=== PATIENT | male | born 1970 | race Caucasian/White ===

== ENCOUNTER 2018-07-23 11:30 | Emergency (ER) | payer MEDICAID, SELFPAY ==
[2018-07-23 11:31] VITALS: BP 119/82; PULSE 71; RESP 17; TEMP 36.4; O2SAT 97; BMI 31.4
--- NOTE | 2018-07-23 12:02 | CT_ITS ---
STUDY: CT ABDOMEN AND PELVIS WITHOUT CONTRAST REASON FOR EXAM: Male, 47 years old. Right flank pain. RADIATION DOSAGE (If Supplied By Facility): CTDIvol = ( 14.20 ) mGy, DLP = ( 702.64 ) mGycm TECHNIQUE: Transaxial images were obtained from the dome of the diaphragm to the symphysis pubis without oral contrast, and without intravenous contrast. Sagittal and coronal images were reconstructed. Individualized dose optimization techniques were used for this CT. COMPARISON: None. FINDINGS: The visualized lung bases are unremarkable. The visualized portions of the heart are within normal limits. Normal liver. Normal gallbladder and extrahepatic biliary system. Normal spleen. Normal pancreas. Normal bilateral adrenal glands. Normal right kidney. Normal left kidney. Normal visualized stomach. Normal small intestine. There are multiple colonic diverticula consistent with diverticulosis. The appendix is visualized and appears normal. There is scattered atherosclerotic calcification of the abdominal aorta, without a demonstrated aneurysm. Normal inferior vena cava. Normal retroperitoneum. Normal urinary bladder. There are prostatic calcifications. There is a small umbilical hernia containing fat. Small bilateral benign-appearing inguinal lymph nodes. There are mild degenerative changes of the visualized lumbar spine. CT/Abdomen/Pelvis without Cont IMPRESSION: Sigmoid diverticulosis. Electronically Signed: Sam Guidry MD at 14:28 EST , Service support ,
--- NOTE | 2018-07-23 12:06 | ED.VISSUMM ---
- ER Visit Summary Date of Service: 07/23/18 Chief Complaint: Right flank pain History of Present Illness: The patient is a 47 M who presents for 4 days of gradually worsening right-sided flank pain. Patient states he had a upper respiratory infection 1 week ago with cough and shortness of breath. No fever, nausea, vomiting, diarrhea or abdominal pain. Those symptoms have since resolved but now he is having right-sided flank pain that is worse with movement and coughing. Patient has pressure when he urinates but denies any hematuria or frequency. She tried ibuprofen and Tylenol without any relief of his pain. He has no history of kidney stones. He denies tobacco use. No medical problems, including no coronary artery disease or prior history of venous thromboembolism. Physical Examination: Vital signs: afebrile, hemodynamically stable, no hypoxia on room air General: well nourished, well developed, in no distress, sitting in a chair Skin: warm, dry, no rash, no pallor HEENT: normocephalic and atraumatic; PERRL, EOMI, moist mucous membranes Cardiovascular: regular rate and rhythm without murmurs, no peripheral edema, 2+ pulses all distal extremities Respiratory: No increased work of breathing, lungs are clear to auscultation bilaterally, no rales, rhonchi or wheezing Abdominal: Abdomen is soft, nontender with normoactive bowel sounds, no guarding or rebound, no masses, positive right-sided CVA tenderness, no tenderness to palpation of the right back musculature MSK: Moves all extremities, no deformities, normal strength Neuro: Awake and alert, oriented ?4. No facial droop, sensation and motor function intact and symmetric Test Results: Abnormal Lab Results 07/23/18 07/23/18 07/23/18 12:11 12:11 12:45 WBC 9.5 RBC 4.89 Hgb 14.7 Hct 44.8 MCV 91.6 MCH 30.1 MCHC 32.8 RDW 12.4 RDW Differential 41.5 Plt Count 225 MPV 10.6 Immature Gran % (Auto) 1.100 H Neut % (Auto) 56.0 Lymph % (Auto) 35.3 [place] % (Auto) 6.2 Eos % (Auto) 1.1 Baso % (Auto) 0.3 Absolute Neuts (auto) 5.3 Absolute Lymphs (auto) 3.34 Total Counted Not Reportable Sodium 141 Potassium 4.1 Chloride 110 H Carbon Dioxide 23.0 Anion Gap 8 BUN 17 Creatinine 1.09 Estim Creat Clear Calc 74.79 Est GFR (MDRD) Af Amer 93 Est GFR (MDRD) Non-Af 76 BUN/Creatinine Ratio 15.6 Glucose 83 Calcium 8.9 Urine Color Yellow Urine Clarity Clear Urine pH 6.5 Ur Specific [place] 1.015 Urine Protein Negative Urine Glucose (UA) Normal Urine Ketones Negative Urine Occult Blood 10 H Urine Nitrite Negative Urine Bilirubin Negative Urine Urobilinogen Normal Ur Leukocyte Esterase Negative Urine RBC 0 SEEN Urine WBC 0 SEEN Ur Squamous Epith Cells 0 SEEN Urine Bacteria 0 SEEN Urine Mucus 0 SEEN Clinical Impression(s) from Imaging Studies Abdomen/Pelvis CT 07/23/18 12:02 IMPRESSION: Sigmoid diverticulosis. Electronically Signed: Sam Guidry MD at 14:28 EST , Service support , Chest X-Ray 07/23/18 13:05 IMPRESSION: Normal x-ray examination of the chest. Electronically Signed: Sam Guirdy MD at 13:35 EST , Service support , Medications Given Sodium Chloride () 1,000 mls @ 999 mls/hr IV .Q1H1M LORETA Last Admin: 07/23/18 15:17 Dose: Not Given Admin: 07/23/18 14:08 Dose: Not Given Admin: 07/23/18 14:08 Dose: Not Given Admin: 07/23/18 12:49 Dose: 999 mls/hr Discontinued Medications Ketorolac Tromethamine (Toradol) 15 mg IV X1 ONE Stop: 07/23/18 12:03 Last Admin: 07/23/18 12:48 Dose: 15 mg Morphine Sulfate () 4 mg IV X1 ONE Stop: 07/23/18 14:16 Last Admin: 07/23/18 14:20 Dose: 4 mg Emergency Department Course and Treatment: Patient was given IV fluids and Toradol for symptomatic relief. Differential includes pneumonia, pleurisy, ureteral colic, pyelonephritis, or musculoskeletal strain. Patient does not have tenderness with palpation of the musculature, thus workup was performed to look for intra-abdominal or intrathoracic cause. Patient is not tachycardic, not hypoxic, has no risk factors for PE and is low risk, PERC negative, thus no d-dimer performed. CBC showed no leukocytosis. Chemistry panel showed no renal dysfunction. Urine was negative for pyuria, hematuria. CT of the flank showed diverticulosis but no sign of a kidney stone. Chest x-ray showed no pneumonia. Patient received additional morphine for pain. On reevaluation he was ambulating without difficulty, and on this reevaluation he did have some tenderness to palpation at the right thoracic region of the back just below the rib margin. Because his pain is worse with movement, this may either be muscle strain or pleurisy, as he did recently have a viral infection. Patient will use naproxen as needed for pain. He was given a prescription of Flexeril to try to see if that helps with a musculoskeletal component. Patient discharged home in improved condition. Treatment Plan: [] Disposition: [] Impression: Pleurisy, thoracic back spasm This note was generated with [employer] dictation software. It may contain incorrect words, spelling, and punctuation that were not noted in review of the chart prior to signing ED Disposition - Plan for ED Patient: Disposition: Home or Assisted Living Instructions: ED Flank Pain Uncertain Cause, ED Chest Pain Pleurisy Prescriptions: RX: Cyclobenzaprine HCl 5 mg PO TID PRN PRN #20 tab PRN Reason: Muscle Spasm RX: Naproxen [Naprosyn] 500 mg PO BID #20 tab Referrals: NOT,DEFINED [NON-STAFF] - Doctor,Your [STAFF PHYSICIAN] - Keep [facility] appointment Additional Instructions: Your workup today showed no findings concerning for pneumonia, a kidney stone, urine infection, and your labs were all normal. Use naproxen to treat pain as needed. You may try the cyclobenzaprine for treatment of back muscle spasm. If you have any new concerning symptoms or any severe worsening of your pain, return emergency department immediately for another evaluation.
--- NOTE | 2018-07-23 12:09 | ED.DCSUM_ITS ---
- ER Visit Summary Date of Service: 07/23/18 Chief Complaint: Right flank pain History of Present Illness: The patient is a 47 M who presents for 4 days of gradually worsening right-sided flank pain. Patient states he had a upper respiratory infection 1 week ago with cough and shortness of breath. No fever, nausea, vomiting, diarrhea or abdominal pain. Those symptoms have since resolved but now he is having right-sided flank pain that is worse with movement and coughing. Patient has pressure when he urinates but denies any hematuria or frequency. She tried ibuprofen and Tylenol without any relief of his pain. He has no history of kidney stones. He denies tobacco use. No medical problems, including no coronary artery disease or prior history of venous thromboembolism. Physical Examination: Vital signs: afebrile, hemodynamically stable, no hypoxia on room air General: well nourished, well developed, in no distress, sitting in a chair Skin: warm, dry, no rash, no pallor HEENT: normocephalic and atraumatic; PERRL, EOMI, moist mucous membranes Cardiovascular: regular rate and rhythm without murmurs, no peripheral edema, 2+ pulses all distal extremities Respiratory: No increased work of breathing, lungs are clear to auscultation bilaterally, no rales, rhonchi or wheezing Abdominal: Abdomen is soft, nontender with normoactive bowel sounds, no guarding or rebound, no masses, positive right-sided CVA tenderness, no tenderness to palpation of the right back musculature MSK: Moves all extremities, no deformities, normal strength Neuro: Awake and alert, oriented ?4. No facial droop, sensation and motor function intact and symmetric Test Results: Abnormal Lab Results 07/23/18 07/23/18 07/23/18 12:11 12:11 12:45 WBC 9.5 RBC 4.89 Hgb 14.7 Hct 44.8 MCV 91.6 MCH 30.1 MCHC 32.8 RDW 12.4 RDW Differential 41.5 Plt Count 225 MPV 10.6 Immature Gran % (Auto) 1.100 H Neut % (Auto) 56.0 Lymph % (Auto) 35.3 [place] % (Auto) 6.2 Eos % (Auto) 1.1 Baso % (Auto) 0.3 Absolute Neuts (auto) 5.3 Absolute Lymphs (auto) 3.34 Total Counted Not Reportable Sodium 141 Potassium 4.1 Chloride 110 H Carbon Dioxide 23.0 Anion Gap 8 BUN 17 Creatinine 1.09 Estim Creat Clear Calc 74.79 Est GFR (MDRD) Af Amer 93 Est GFR (MDRD) Non-Af 76 BUN/Creatinine Ratio 15.6 Glucose 83 Calcium 8.9 Urine Color Yellow Urine Clarity Clear Urine pH 6.5 Ur Specific [place] 1.015 Urine Protein Negative Urine Glucose (UA) Normal Urine Ketones Negative Urine Occult Blood 10 H Urine Nitrite Negative Urine Bilirubin Negative Urine Urobilinogen Normal Ur Leukocyte Esterase Negative Urine RBC 0 SEEN Urine WBC 0 SEEN Ur Squamous Epith Cells 0 SEEN Urine Bacteria 0 SEEN Urine Mucus 0 SEEN Clinical Impression(s) from Imaging Studies Abdomen/Pelvis CT 07/23/18 12:02 IMPRESSION: Sigmoid diverticulosis. Electronically Signed: Sam Guidry MD at 14:28 EST , Service support , Chest X-Ray 07/23/18 13:05 IMPRESSION: Normal x-ray examination of the chest. Electronically Signed: Sam Guidry MD at 13:35 EST , Service support , Medications Given Sodium Chloride () 1,000 mls @ 999 mls/hr IV .Q1H1M LORETA Last Admin: 07/23/18 15:17 Dose: Not Given Admin: 07/23/18 14:08 Dose: Not Given Admin: 07/23/18 14:08 Dose: Not Given Admin: 07/23/18 12:49 Dose: 999 mls/hr Discontinued Medications Ketorolac Tromethamine (Toradol) 15 mg IV X1 ONE Stop: 07/23/18 12:03 Last Admin: 07/23/18 12:48 Dose: 15 mg Morphine Sulfate () 4 mg IV X1 ONE Stop: 07/23/18 14:16 Last Admin: 07/23/18 14:20 Dose: 4 mg Emergency Department Course and Treatment: Patient was given IV fluids and Toradol for symptomatic relief. Differential includes pneumonia, pleurisy, ureteral colic, pyelonephritis, or musculoskeletal strain. Patient does not have tenderness with palpation of the musculature, thus workup was performed to look for intra-abdominal or intrathoracic cause. Patient is not tachycardic, not hypoxic, has no risk factors for PE and is low risk, PERC negative, thus no d-dimer performed. CBC showed no leukocytosis. Chemistry panel showed no renal dysfunction. Urine was negative for pyuria, hematuria. CT of the flank showed diverticulosis but no sign of a kidney stone. Chest x-ray showed no pneumonia. Patient received additional morphine for pain. On reevaluation he was ambulating without difficulty, and on this reevaluation he did have some tenderness to palpation at the right thoracic region of the back just below the rib margin. Because his pain is worse with movement, this may either be muscle strain or pleurisy, as he did recently have a viral infection. Patient will use naproxen as needed for pain. He was given a prescription of Flexeril to try to see if that helps with a musculoskeletal component. Patient discharged home in improved condition. Treatment Plan: [] Disposition: [] Impression: Pleurisy, thoracic back spasm This note was generated with [employer] dictation software. It may contain incorrect words, spelling, and punctuation that were not noted in review of the chart prior to signing ED Disposition - Plan for ED Patient: Disposition: Home or Assisted Living Instructions: ED Flank Pain Uncertain Cause, ED Chest Pain Pleurisy Prescriptions: RX: Cyclobenzaprine HCl 5 mg PO TID PRN PRN #20 tab PRN Reason: Muscle Spasm RX: Naproxen [Naprosyn] 500 mg PO BID #20 tab Referrals: NOT,DEFINED [NON-STAFF] - Doctor,Your [STAFF PHYSICIAN] - Keep [facility] appointment Additional Instructions: Your workup today showed no findings concerning for pneumonia, a kidney stone, urine infection, and your labs were all normal. Use naproxen to treat pain as needed. You may try the cyclobenzaprine for treatment of back muscle spasm. If you have any new concerning symptoms or any severe worsening of your pain, return emergency department immediately for another evaluation.
[2018-07-23 12:28] LABS: Absolute Lymphocyte Count 3.34 X10^3/ul (0.83-4.51); Absolute Neutrophil Count 5.3 X10^3/uL (2.0-7.7); Basophil# 0.03 X10^3/uL; Basophil% 0.3 % (0-1); Eosinophils% 1.1 % (0-5); Hematocrit 44.8 % (40-54); Hemoglobin 14.7 g/dl (13.0-16.5); Lymphocyte # 3.34 X10^3/ul (4.0); Lymphocyte % 35.3 % (19-41); Mean Corp Hgb Conc 32.8 g/gl (32-36); Mean Corpuscular Hgb 30.1 pg (27.0-32.0); Mean Corpuscular Volume 91.6 fL (80-94); Mean Platelet Vol. 10.6 fl (6.2-12.0); Monocyte# 0.59 X10^3/uL; Monocyte% 6.2 % (0-10); Neutrophil # 5.31 X10^3/uL (2.7-7.7); Platelet Count 225 K/mm3 (150-450); RBC Distribution Width CV 12.4 % (11.6-14.6); RBC Distribution Width SD 41.5 fl (35.1-43.9); Red Blood Count 4.89 M/mm3 (4.6-6.2); White Blood Count 9.5 K/mm3 (4.4-11.0)
[2018-07-23 12:30] LABS: POSITIVE COUNT NO; POSITIVE DIFFERENTIAL NO; POSITIVE MORPHOLOGY NO
[2018-07-23 12:43] LABS: Anion Gap 8 (5-15); BUN 17 mg/dL (7-18); BUN/Creat Ratio 15.6 RATIO (10-20); Calcium,Total 8.9 mg/dL (8.5-10.1); Chloride 110 mmol/L (98-107); Creatinine, Serum 1.09 mg/dL (0.70-1.30); EST Glomerular Filtration Rate 76 mL/min (>60); Est Glom Filt Rate - Afr Amer 93 mL/min (>60); Estimated Creatinine Clearance 74.79 ml/min; Glucose 83 mg/dL (74-106); Potassium 4.1 mmol/L (3.5-5.1); Sodium Level 141 mmol/L (136-145)
[2018-07-23] MEDS: Ketorolac 30 MG/ML Syringe 15 MG IV (12:48)
[2018-07-23] MEDS: 0.9% Normal Saline 1,000 ML 999 ML IV (12:49)
--- NOTE | 2018-07-23 13:05 | RAD_ITS ---
STUDY: X-RAY CHEST REASON FOR EXAM: Male, 47 years old. Chest pain. TECHNIQUE: PA and lateral views of the chest. COMPARISON: None. FINDINGS: The lungs are clear and expanded. Scattered calcified granulomas. There is no demonstrated pleural abnormality. Normal size heart. Normal mediastinum and brendan. Normal visualized pulmonary arteries. Normal visualized aortic arch and descending thoracic aorta. Normal visualized thoracic spine. Normal visualized ribs, clavicles, and shoulders. There is no demonstrated abnormality of the visualized soft tissue structures of the upper abdomen. RAD/Chest PA and Lateral IMPRESSION: Normal x-ray examination of the chest. Electronically Signed: Sam Guidry MD at 13:35 EST , Service support ,
[2018-07-23 13:07] LABS: Bacteria 0 SEEN /hpf (None Seen); Mucous, Urine 0 SEEN /hpf (<or=2+); Red Blood Cells-Urine 0 SEEN /hpf (0-5); Squamous Epithelial Cells - UA 0 SEEN /hpf (0-5); White Blood Cells 0 SEEN /hpf (0-5)
[2018-07-23 13:09] LABS: Color, Urine Yellow (Yellow); Glucose, Dipstick Normal (Normal); Ketone-Dipstick Negative (Negative); Leukocyte Esterase-Dipstick Negative /ul (Negative); Nitrite-Dipstick Negative (Negative); Occult Blood-Urine 10 /ul (Negative); Protein-Dipstick Negative (Negative); Specific Gravity, Urine 1.015 (1.002-1.030); Urine Bilirubin Dipstick Negative (Negative); Urine Clarity Clear (Clear); Urine Urobilinogen Normal (Normal); Urine pH 6.5 (5.0 - 8.0)
[2018-07-23] MEDS: Morphine 4 MG/ML Syringe IV (14:20)
[2018-07-23 15:58] VITALS: BP 118/76; PULSE 70; RESP 16; O2SAT 98
== END 2018-07-23 15:59 | disposition home or self-care (01) ==
PROVIDERS: Emergency Provider Emergency Medicine; Family Provider Internal Medicine; PCP Internal Medicine
DX: R09.1 Pleurisy (principal); M62.830 Muscle spasm of back; K57.30 Diverticulosis of large intestine without perforation or abscess without bleeding; Z72.0 Tobacco use
CPT/HCPCS: 71046; 74176; 80048; 81001; 85025; 96361; 96374; 96375; 99284; J7030; A4216

== ENCOUNTER 2021-02-11 22:01 | Emergency (ER) | payer MEDICAID, SELFPAY ==
[2021-02-11 22:02] VITALS: BP 119/78; PULSE 72; RESP 16; TEMP 36.7; O2SAT 95; BMI 29.7
--- NOTE | 2021-02-11 22:05 | RAD_ITS ---
STUDY: X-RAY - RIGHT HAND REASON FOR EXAM: Male, 50 years old. Trauma. TECHNIQUE: 3 view(s) of the hand. COMPARISON: None. FINDINGS: Normal radiocarpal articulation. Normal distal radioulnar joint. Normal visualized carpal bones. Normal carpal articulations Normal carpometacarpal articulation of the thumb. Normal second through fifth carpometacarpal joints. Normal metacarpi. Osteophyte base of the first metacarpal. Normal interphalangeal joint of the thumb. Normal proximal and distal phalanges of the thumb. Normal metacarpophalangeal joints of the second through fifth fingers. Normal proximal and distal interphalangeal joints of the second through fifth fingers. Normal phalanges of the second through fifth fingers. The soft tissue structures are unremarkable. RAD/Hand Min 3 Views IMPRESSION: No acute findings in the hand. Electronically Signed: Riley Cui MD at 23:52 EDT , Service support ,
[2021-02-11 22:33] VITALS: RESP 17
--- NOTE | 2021-02-11 23:36 | CT_ITS ---
STUDY: CT BRAIN WITHOUT CONTRAST REASON FOR EXAM: Male, 50 years old. trauma RADIATION DOSAGE (If Supplied By Facility): CTDIvol = ( 44.99 ) mGy, DLP = ( 829.85 ) mGycm TECHNIQUE: Transaxial CT imaging of the brain was performed without administration of intravenous contrast material. Individualized dose optimization techniques were used for this CT. COMPARISON: No relevant priors. FINDINGS: Normal soft tissue structures. Normal calvarium. Normal size ventricles and extra-axial spaces for the patient''s age. Normal white matter tracts of the cerebral hemispheres. Normal basal ganglia and thalami. Normal brainstem. Normal cerebellum. There is no intracranial hemorrhage. There are no findings of an acute ischemic infarction. Moderate right and mild left maxillary sinus mucosal thickening. CT/Brain/Head without Contrast IMPRESSION: Normal unenhanced CT scan of the brain. Electronically Signed: Riley Cui MD at 1:02 EDT , Service support ,
--- NOTE | 2021-02-11 23:36 | CT_ITS ---
STUDY: CT FACIAL BONES WITHOUT CONTRAST REASON FOR EXAM: Male, 50 years old. trauma RADIATION DOSAGE (If Supplied By Facility): CTDIvol = ( 29.38 ) mGy, DLP = ( 628.26 ) mGycm TECHNIQUE: The patient was scanned in a multi detector CT scanner. Sagittal and coronal images were reconstructed. Individualized dose optimization techniques were used for this CT. COMPARISON: None. FINDINGS: Normal soft tissue structures. Normal orbital laguerre and orbital contents. On the lateral view mild deformity of the left nasal bones probably related to old trauma. Normal facial bones. There is no demonstrated fracture. Moderate to severe right and mild left maxillary sinus mucosal thickening. CT/Sinus/Facial Bone IMPRESSION: No acute findings in the facial bones. Mild left nasal bone fracture which is probably old. Maxillary sinus mucosal thickening. Electronically Signed: Riley Cui MD at 1:17 EDT , Service support ,
--- NOTE | 2021-02-11 23:36 | CT_ITS ---
STUDY: CT CERVICAL SPINE WITHOUT CONTRAST REASON FOR EXAM: Male, 50 years old. trauma RADIATION DOSAGE (If Supplied By Facility): CTDIvol = ( 22.08 ) mGy, DLP = ( 483.86 ) mGycm TECHNIQUE: High resolution transaxial imaging was performed without contrast material. Sagittal and coronal images were reconstructed. Individualized dose optimization techniques were used for this CT. COMPARISON: None FINDINGS: Normal craniovertebral junction. Normal anterior atlantoaxial articulation. Normal odontoid process. There is straightening of the normal cervical lordosis, compatible with muscle spasm or patient positioning. Mild anterior wedging C6 which is likely old. C2-3: Normal endplates. Normal disc height and morphology. Normal central canal and intervertebral neuroforamina. C3-4: Normal endplates. Normal disc height and morphology. Normal central canal and intervertebral neuroforamina. C4-5: Mild disc space narrowing. Marginal osteophytes. Normal central canal and intervertebral neuroforamina. C5-6: Marginal osteophytes. Normal disc height and morphology. Normal central canal and intervertebral neuroforamina. C6-7: Normal endplates. Normal disc height and morphology. Normal central canal and intervertebral neuroforamina. C7-T1: Normal endplates. Normal disc height and morphology. Normal central canal and intervertebral neuroforamina. Normal visualized soft tissue structures. CT/Spine Cervical without Contras IMPRESSION: Mild degenerative changes of the cervical spine, no fracture identified. Mild anterior wedging of C6 which is likely old. A fracture line is not identified. Electronically Signed: Riley Cui MD at 1:06 EDT , Service support ,
[2021-02-11] MEDS: Diphth,Pertuss(Acell),Tet Vac 0.5 ML Vial IM (23:52)
[2021-02-11] MEDS: Naproxen 500 MG Tablet PO (23:52)
[2021-02-11] MEDS: Doxycycline 100 MG CAPSULE PO (23:52)
[2021-02-12 00:23] VITALS: PULSE 74; RESP 17; O2SAT 98
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
== END 2021-02-12 01:30 | disposition home or self-care (01) ==
PROVIDERS: Emergency Provider Emergency Medicine
DX: S00.212A Abrasion of left eyelid and periocular area, initial encounter (principal); S00.83XA Contusion of other part of head, initial encounter; T24.201A Burn of second degree of unspecified site of right lower limb, except ankle and foot, initial encounter; M79.641 Pain in right hand; V47.6XXA Car passenger injured in collision with fixed or stationary object in traffic accident, initial encounter; Y93.9 Activity, unspecified; Y92.9 Unspecified place or not applicable; F17.210 Nicotine dependence, cigarettes, uncomplicated
CPT/HCPCS: 70450; 70486; 72125; 73130; 90715; 99283; A4216

== ENCOUNTER 2022-07-25 11:27 | Emergency (ER) | payer MEDICAID, SELFPAY ==
[2022-07-25 11:28] VITALS: BP 152/91; PULSE 72; RESP 16; TEMP 36.9; O2SAT 99
--- NOTE | 2022-07-25 11:45 | RAD_ITS ---
STUDY: X-RAY CHEST REASON FOR EXAM: Male, 51 years old. Chest pain TECHNIQUE: Single AP portable view of the chest. COMPARISON: Comparison is made with prior study dated 07/23/2018. FINDINGS: EKG electrodes are seen. Tiny metallic densities seen overlying the inferior aspect of the left cervical region. This may represent a suture. Hyperinflation. The lungs are clear. There is no demonstrated pleural abnormality. Normal size heart. Normal mediastinum and brendan. Normal visualized pulmonary arteries. Normal visualized aortic arch and descending thoracic aorta. Normal visualized thoracic spine. Normal visualized ribs, clavicles, and shoulders. There is no demonstrated abnormality of the visualized soft tissue structures of the upper abdomen. RAD/Chest 1 View (Portable) IMPRESSION: Hyperinflation. The lungs are clear. Electronically Signed: Sam Guidry MD at 12:18 EST ,
[2022-07-25 11:53] LABS: Absolute Lymphocyte Count 2.52 X10^3/uL (0.83-4.51); Absolute Neutrophil Count 5.1 X10^3/uL (2.0-7.7); Basophil# 0.06 X10^3/uL; Basophil% 0.7 % (0-1); Eosinophil# 0.43 X10^3/uL; Eosinophils% 4.8 % (0-5); Hematocrit 47.6 % (40-54); Hemoglobin 14.9 g/dL (13.0-16.5); Lymphocyte # 2.52 X10^3/ul (0.83-4.51); Lymphocyte % 28.2 % (19-41); Mean Corp Hgb Conc 31.3 g/dL (32-36); Mean Corpuscular Hgb 27.3 pg (27.0-32.0); Mean Corpuscular Volume 87.2 fL (80-94); Mean Platelet Vol. 10.4 fl (6.2-12.0); Monocyte# 0.77 X10^3/uL; Monocyte% 8.6 % (0-10); NRBC Flagged by Analyzer 0 % (0-5); Neutrophil # 5.11 X10^3/uL (2.7-7.7); Neutrophil % 57.3 % (47-70); Platelet Count 209 K/mm3 (150-450); RBC Distribution Width SD 47.7 fl (35.1-43.9); Red Blood Count 5.46 M/mm3 (4.6-6.2); White Blood Count 8.9 K/mm3 (4.4-11.0)
[2022-07-25 12:11] LABS: Anion Gap 5 (5-15); BUN 17 mg/dL (7-18); BUN/Creat Ratio 17.1 RATIO (10-20); Calcium,Total 9.3 mg/dL (8.5-10.1); Chloride 106 mmol/L (98-107); Creatinine, Serum 0.99 mg/dL (0.70-1.30); EST Glomerular Filtration Rate 84 mL/min (>60); Est Glom Filt Rate - Afr Amer 101 mL/min (>60); Glucose 78 mg/dL (74-106); Potassium 4.2 mmol/L (3.5-5.1); Sodium Level 142 mmol/L (136-145); Troponin-I HS (w/2H Reflex) 9 pg/mL (3.0-78.0)
--- NOTE | 2022-07-25 12:50 | ED.VIS.CHEST ---
HPI History of Present Illness Chief Complaint: Chest Pain Narrative Narrative: 51-year-old male presenting with chest pain. Patient states the chest pain started last night and was on the right side of his chest. He states it was pretty severe. He states he was having a little bit of shortness of breath associated with it. He states I was breathing very intentionally. He states that it subsided for the most part and then this morning started on the left side of the chest pretty similar. No radiation to the jaw or down the arm. [facility] Medical History (Updated 07/25/22 @ 11:32 by Suma Donahue) High cholesterol Hypertension Home Medications doxycycline monohydrate 100 mg capsule 100 mg PO BID #20 caps 02/12/21 [Rx Last Taken Unknown] naproxen 500 mg tablet (Naprosyn) 500 mg PO BID PRN pain #20 tabs 02/12/21 [Rx Last Taken Unknown] amlodipine 5 mg tablet 5 mg PO DAILY 07/25/22 [History Last Taken Unknown] atorvastatin 40 mg tablet 40 mg PO DAILY 07/25/22 [History Last Taken Unknown] buprenorphine 8 mg-naloxone 2 mg sublingual tablet 1 tab sublingual BID 07/25/22 [History Last Taken Unknown] Allergy/AdvReac Type Severity Reaction Status Date / Time No Known Allergies Allergy Verified 07/25/22 11:31 Social History Smoking Status: Current every day smoker tobacco type: e-cigarettes EXAM Physical Exam Const Vital Signs: 07/25/22 11:28 07/25/22 11:32 07/25/22 11:42 Temperature 98.4 F Temperature Source Temporal Pulse Rate 72 Respiratory Rate 16 Respiratory Effort Normal Respiratory Pattern Normal Blood Pressure 152/91 H Blood Pressure Mean 111 Pulse Ox 99 Oxygen Delivery Method Room Air 07/25/22 14:45 Temperature Temperature Source Pulse Rate 79 Respiratory Rate 14 Respiratory Effort Respiratory Pattern Blood Pressure 122/71 H Blood Pressure Mean 88 Pulse Ox 98 Oxygen Delivery Method Room Air General Appearance ED: Negative for pallor HEENT Reports normocephalic, head/scalp atraumatic and moist mucous membranes Eyes PERRL and EOMs intact bilaterally Neck no lymphadenopathy and supple Chest Wall inspection of chest normal and palpation of chest normal Resp normal respiratory effort and clear to auscultation bilaterally Auscultation: Negative for rales, rhonchi or wheezes Cardio regular rate and regular rhythm GI normal to inspection, nondistended, normoactive bowel sounds and non-distended Auscultation: normoactive bowel sounds Palpation: soft Narrative: Deferred Extremity normal to inspection General Extremety ED: Yes edema and tenderness General Extremity: edema Neuro oriented x3 and CN's II-XII intact bilaterally Sensorium / Orientation: alert Motor Exam: strength 5/5 throughout Psych mental status grossly normal Attitude: No agitated Skin no rashes or lesions noted and no wounds General Skin Exam: Negative for jaundice or pallor Heart Score History: Slightly/Non-Suspicious ECG: Normal Age: >45 - <65 years Risk Factors: >/= 3 Risk Factors or History of CAD Score: 3 MDM MDM MDM Narrative Medical decision making narrative: Patient presenting with chest pain. He states it started on the right side eventually moved to the left. He does state he was initially little short of breath but not a more. He has not had fever, chills, cough. Differential includes but is not limited to ACS, PE, aortic dissection, pneumonia, Boerhaave's, pneumothorax, muscle strain, costochondritis. Patient declines analgesia. EKG was obtained which shows a normal sinus rhythm with ventricular to 70 bpm without sign of ischemic change or dysrhythmia. Patient PERC negative. CBC to assess white blood cell count, hemoglobin, differential. BMP to assess renal function, electrolytes. High-sensitivity troponin initially 9. Delta troponin is 8. Patient's work-up essentially normal. Obtained a chest x-ray which on my interpretation shows no acute cardiopulmonary process. Radiologist are persistent agrees. Given ultimately normal work-up I believe is more likely to have costochondritis. He is counseled NSAIDs, ice, stretching. Patient to follow-up with PCP. Patient stable discharge. Impression: 1. Chest pain 2. Costochondritis 3. Dyspnea Lab Data Labs: Laboratory Results - last 24 hr 07/25/22 07/25/22 07/25/22 11:35 11:35 13:55 WBC 8.9 RBC 5.46 Hgb 14.9 Hct 47.6 MCV 87.2 MCH 27.3 MCHC 31.3 L RDW Std Deviation 47.7 H RDW Coeff of Ryan 15.0 H Plt Count 209 MPV 10.4 Immature Gran % (Auto) 0.400 Neut % (Auto) 57.3 Lymph % (Auto) 28.2 Alpine % (Auto) 8.6 Eos % (Auto) 4.8 Baso % (Auto) 0.7 Absolute Neuts (auto) 5.1 Absolute Lymphs (auto) 2.52 Nucleated RBC % 0 Sodium 142 Potassium 4.2 Chloride 106 Carbon Dioxide 31.0 Anion Gap 5 BUN 17 Creatinine 0.99 Estim Creat Clear Calc 81.60 Est GFR (MDRD) Af Amer 101 Est GFR (MDRD) Non-Af 84 BUN/Creatinine Ratio 17.1 Glucose 78 Calcium 9.3 Troponin I High Sens 9 8 Radiography Diagnostic Testing: Clinical Impression(s) from Imaging Studies Chest X-Ray 07/25/22 11:45 IMPRESSION: Hyperinflation. The lungs are clear. Electronically Signed: Sam Guidry MD at 12:18 EST Reading Location ID and State: [address] [place] [address] , Service support , Discharge Plan Triage Chief Complaint: Chest Pain ED Provider: Tommy Schuler Dx/Rx/DC Orders Instructions: ED Chest Pain, Noncardiac Prescriptions: No Action doxycycline monohydrate 100 MG capsule 100 mg PO BID Qty: 20 0RF naproxen [Naprosyn] 500 mg tablet 500 mg PO BID PRN (Reason: pain) Qty: 20 0RF atorvastatin 40 mg tablet 40 mg PO DAILY Label Comments: TAKE 1 TABLET BY MOUTH EVERY DAY amlodipine 5 mg tablet 5 mg PO DAILY Label Comments: TAKE 1 TABLET BY MOUTH EVERY DAY buprenorphine-naloxone 8-2 mg tablet, sublingual 1 tab SUBLINGUAL BID Label Comments: TAKE 1 TABLET EVERY 12 HOURS Primary Care Provider: Gómez Garvey Referrals: Gómez Garvey MD [Primary Care Provider] - Disposition Disposition: Home, Self Care Discharge Date/Time: 07/25/22 14:49
[2022-07-25 13:45] LABS: Reflex Troponin-HS? (from REC) Y
[2022-07-25 14:20] LABS: Troponin-I HS 8 pg/mL (3.0-78.0)
[2022-07-25 14:45] VITALS: BP 122/71; PULSE 79; RESP 14; O2SAT 98
== END 2022-07-25 14:49 | disposition home or self-care (01) ==
PROVIDERS: Emergency Provider Student in an Organized Health Care Education/Training Program; PCP Internal Medicine; Visit Provider Student in an Organized Health Care Education/Training Program
DX: R07.9 Chest pain, unspecified (principal); I10 Essential (primary) hypertension; E78.00 Pure hypercholesterolemia, unspecified; R06.02 Shortness of breath; Z79.899 Other long term (current) drug therapy; F17.290 Nicotine dependence, other tobacco product, uncomplicated; M94.0 Chondrocostal junction syndrome [Tietze]
CPT/HCPCS: 71045; 80048; 84484; 85025; 93005; 99284; A4216

== ENCOUNTER → 2023-03-12 | Outpatient (CLI) | payer MEDICAID, SELFPAY ==
--- NOTE | 2023-03-12 14:33 | NEURO ---
NCS and/or EMG Patient Report Ordering Doctor: Gómez Garvey DATE OF SERVICE: 03/12/23 Hema presents for electrodiagnostic testing of the left lower limb. He reports numbness tingling and discomfort in the left lower leg. He reports this is been present for approximately 2 years. He reports numbness in the medial aspect of the foot. Electrodiagnostic Findings: Peroneal nerve demonstrates normal distal latency, amplitude and conduction velocity. Left tibial motor nerve demonstrates normal distal latency and conduction velocity with reduced amplitude. Absent left sural and superficial peroneal responses. Prolonged left tibial F wave. Prolonged left H reflex. Right knee reflex was not performed. Needle EMG testing was performed in the left lower limb. All muscles tested showed no evidence of denervation with normal motor unit action potentials. Electrodiagnostic impression: This is an abnormal study in the left lower limb 1. Electrodiagnostic findings consistent with sensory neuropathy, involving the left sural and superficial peroneal nerves. 2. 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 Consider correlation with the alternate lower limb and potentially 1 upper limb to better evaluate for peripheral polyneuropathy. Multi Select Codes Neurology Neurology Interp Codes: 39228-05 Musc test done w/n test comp (interp) and 69290-31 Nrv cndj tst 5-6 studies (interp)
== END | disposition home or self-care (01) ==
LOC: PSN 12:27
PROVIDERS: PCP Internal Medicine; Referring Provider Internal Medicine; Visit Provider Internal Medicine
DX: R20.0 Anesthesia of skin (principal)
CPT/HCPCS: 95886; 95909

== ENCOUNTER 2025-03-15 12:28 | Inpatient (IN) | payer SELFPAY ==
[2025-03-15] VITALS (8 sets, daily range): BP systolic 114–142; BP diastolic 71–95; PULSE 66–79; RESP 16–20; TEMP 36.7–38.5; O2SAT 96–100; BMI 28.5; BMI 27.6
--- NOTE | 2025-03-15 13:02 | EDS_ITS ---
HPI History of Present Illness Chief Complaint: Substance Abuse Narrative Narrative: 54-year old male who denies significant past medical history presents with his brother for detox from polysubstances. He states he uses cocaine as well as Percocet and Xanax. He has been using Percocet and Xanax daily for the last few weeks up to 3 months. He also admits to drinking alcohol occasionally, and he drank alcohol today. He usually uses 3-4 Percocet at a time and takes a few bars of Xanax daily. His last use was a few hours ago at around 11 AM. He states that he wants to get sober. [facility] Medical History Cerebral palsy High cholesterol Hypertension Home Medications ?Medication ?Instructions ?Recorded ?Last Taken ?Type doxycycline monohydrate 100 mg 100 mg PO BID #20 caps 02/12/21 Unknown Rx capsule naproxen 500 mg tablet (Naprosyn) 500 mg PO BID PRN pa in #20 tabs 02/12/21 U nknown Rx amlodipine 5 mg tablet 5 mg PO DAILY 07/25/22 Unkno wn History atorvastatin 40 mg tablet 40 mg PO DAILY 07/25/22 Unkn own History buprenorphine 8 mg-naloxone 2 mg 1 tab sublingual BID 07/25/22 Unknown History sublingual tablet Allergy/AdvReac Type Severity Reaction Status Date / Time No Known Allergies Allergy Verified 03/15/25 12:32 Family History (Updated 03/15/25 @ 15:[address] Sushant Del Angel DO) Other Addiction Social History (Updated 03/15/25 @ 15:[address] Sushant Del Angel DO) Smoking Status: Former smoker alcohol intake: current alcohol intake frequency: a few times a week substance use type: crack/cocaine, opiates and other details: xanax ROS ROS ED ROS Narrative Review of systems negative for chest pain, shortness of breath, fever, chills, nausea, vomiting. Denies any physical symptoms. EXAM Physical Exam Narrative Exam Narrative: Initial temperature documented as febrile, however repeat shows no evidence of fever, vital signs noted. No tachycardia. Cardiovascular examination regular rate and rhythm. Lungs clear to auscultation bilaterally. Abdomen is soft and nontender with positive bowel sounds, no guarding or rebound. Neurological examination nonfocal, nonlateralizing. Const Vital Signs: 03/15/25 12:30 03/15/25 12:48 03/15/25 13:28 Temperature 101.3 F H 98.0 F Temperature Source Oral Oral Pulse Rate 75 78 Respiratory Rate 20 H 16 Blood Pressure 128/71 H 132/78 H 122/78 H Blood Pressure Mean 90 96 92 Pulse Ox 97 100 Oxygen Delivery Method Room Air Room Air Room Air 03/15/25 14:00 03/15/25 14:50 Temperature Temperature Source Pulse Rate 66 79 Respiratory Rate 16 16 Blood Pressure 114/81 H 138/94 H Blood Pressure Mean 92 108 Pulse Ox 99 99 Oxygen Delivery Method Room Air Room Air MDM MDM MDM Narrative Medical decision making narrative: No feel differential diagnosis is applicable. Patient admits to polysubstance abuse. Medical screening labs were obtained. He was told as well as his brother that this is a detox facility, and that rehab is either performed as an outpatient versus inpatient after medical detox. I reviewed his laboratory work and he has slight leukocytosis of 12.9 which I think is nonspecific, hemoglobin normal at 15.7 with hematocrit 47.8, platelet count normal at 201. CMP shows glucose elevated at 174 but normal anion gap of 14, AST slightly elevated at 46, ALT normal at 37 and alk phos 124. Urine drug screen positive for oxycodone, benzodiazepines, and cocaine. Serum alcohol level slightly elevated at 21.3. At this point in time, I do feel he is medically cleared for admission to detox. Dr. Del Angel informed of the patient for admission to detox. Patient is in stable condition. History & Record Review Discussion w/independent historian: Patient and Family Additional record(s) reviewed:: Prior ED visit (Noncontributory to current chief complaint) Lab Data Attestation: I reviewed the patient's lab results. Labs: Laboratory Results - last 24 hr 03/15/25 13:10 WBC 12.9 H RBC 5.46 Hgb 15.7 Hct 47.8 MCV 87.5 MCH 28.8 MCHC 32.8 RDW Std Deviation 42.4 RDW Coeff of Ryan 13.2 Plt Count 201 MPV 9.3 Immature Gran % (Auto) 0.300 Neut % (Auto) 87.3 H Lymph % (Auto) 5.7 L Bulloch % (Auto) 6.1 Eos % (Auto) 0.2 Baso % (Auto) 0.4 Absolute Neuts (auto) 11.3 H Absolute Lymphs (auto) 0.74 L Nucleated RBC % 0 Sodium 141 Potassium 3.6 Chloride 104 Carbon Dioxide 22.7 Anion Gap 14 BUN 7 Creatinine 1.14 Estim Creat Clear Calc 75.24 Est GFR (MDRD) Non-Af 76 BUN/Creatinine Ratio 6.4 L Glucose 174 H Calcium 9.4 Total Bilirubin 0.75 AST 46 H ALT 37 Alkaline Phosphatase 124 Total Protein 7.1 Albumin 4.1 Globulin 3.0 Albumin/Globulin Ratio 1.3 Urine Opiates Screen NEGATIVE U Buprenorphine Qual NEGATIVE Ur Oxycodone Screen PRESUMPTIVE POSITIVE Urine Methadone Screen NEGATIVE Urine Fentanyl Screen NEGATIVE Ur Barbiturates Screen NEGATIVE Ur Phencyclidine Scrn NEGATIVE Ur Amphetamines Screen NEGATIVE U Benzodiazepines Scrn PRESUMPTIVE POSITIVE Urine Cocaine Screen PRESUMPTIVE POSITIVE U Cannabinoids Screen NEGATIVE Ethyl Alcohol 21.3 H Discharge Plan Dx/Rx/DC Orders Clinical Impression: Polysubstance abuse, Alcohol abuse, Desire for detoxification Disposition Disposition: Acute Care Hospital [facility]
[2025-03-15 13:20] LABS: Hematocrit 47.8 % (40-54); Hemoglobin 15.7 g/dL (13.0-16.5); Immature Granulocytes Count 0.040 X10^3/uL (0.0-0.0); Mean Corp Hgb Conc 32.8 g/dL (32-36); Mean Corpuscular Volume 87.5 fL (80-94); Mean Platelet Vol. 9.3 fl (6.2-12.0); NRBC Flagged by Analyzer 0 % (0-5); Platelet Count 201 K/mm3 (150-450); RBC Distribution Width CV 13.2 % (11.6-14.6); RBC Distribution Width SD 42.4 fl (35.1-43.9); Red Blood Count 5.46 M/mm3 (4.6-6.2); White Blood Count 12.9 K/mm3 (4.4-11.0)
[2025-03-15 14:01] LABS: AST(SGOT) 46 U/L (<=37); Alanine Aminotransfer ALT/SGPT 37 U/L (<=46); Albumin, Serum 4.1 g/dL (3.5-5.0); Alcohol, Blood (Medical)-Serum 21.3 mg/dL (<=10.0); Alkaline Phosphatase 124 U/L (40-129); Anion Gap 14 (5-15); BUN 7 mg/dL (4-19); BUN/Creat Ratio 6.4 RATIO (10-20); Calcium,Total 9.4 mg/dL (7.6-11.0); Carbon Dioxide 22.7 mmol/L (21.0-32.0); Chloride 104 mmol/L (98-108); Estimated Creatinine Clearance 75.24 ml/min (50-250); Globulin 3.0 g/dL (2.2-4.2); Glucose 174 mg/dL (70-99); Potassium 3.6 mmol/L (3.3-5.1)
[2025-03-15 14:02] LABS: Barbiturate Urine NEGATIVE (< 200 ng/mL); Benzodiazepine Urine PRESUMPTIVE POSITIVE (< 200 ng/mL); PCP Urine NEGATIVE (< 25 ng/mL); THC Urine NEGATIVE (< 50 ng/mL)
--- NOTE | 2025-03-15 15:20 | HP.PCM.HOS_ITS ---
HPI - General General Date of Service: 03/15/25 Chief Complaint: polysubstance withdrawal HPI Narrative KIRSTIE REED, is a 54 M who presents seeking treatment for polysubstance withdrawal. He presents here with his and he states that he had been sober for roughly 4 years and then about a month ago starting using Xanax. This was illicit Xanax and was taking several bars as well as bars of Percocet. His brother came to his house and then brought him to the emergency room to seek treatment for withdrawal. He does endorse that he drinks alcohol occasionally and has used cocaine occasionally. Has utilized nicotine products but not basis. Currently he is feeling very unwell, his last use was last night and experiencing diffuse myalgias, rhinitis, restless legs. [ ] [facility] Medical History Cerebral palsy High cholesterol Hypertension Home Medications ?Medication ?Instructions ?Recorded ?Last Taken ?Type doxycycline monohydrate 100 mg 100 mg PO BID #20 caps 02/12/21 Unknown Rx capsule naproxen 500 mg tablet (Naprosyn) 500 mg PO BID PRN pa in #20 tabs 02/12/21 Unknown Rx amlodipine 5 mg tablet 5 mg PO DAILY 07/25/22 Unkno wn History atorvastatin 40 mg tablet 40 mg PO DAILY 07/25/22 Unkn own History buprenorphine 8 mg-naloxone 2 mg 1 tab sublingual BID 07/25/22 Unknown History sublingual tablet Allergy/AdvReac Type Severity Reaction Status Date / Time No Known Allergies Allergy Verified 03/15/25 12:32 Family History (Updated 03/15/25 @ 15:[address] Sushant Del Angel DO) Other Addiction Social History (Updated 03/15/25 @ 15:[address] Sushant Del Angel DO) Smoking Status: Former smoker alcohol intake: current alcohol intake frequency: a few times a week substance use type: crack/cocaine, opiates and other details: xanax ROS ROS Narrative All review of systems were negative except as mentioned above in the history of present illness and the other review of systems. Vital Signs Vital Signs Vital Signs: 03/15/25 12:30 03/15/25 12:48 03/15/25 13:28 Temperature 38.5 C H 36.7 C Temperature Source Oral Oral Pulse Rate 75 78 Respiratory Rate 20 H 16 Blood Pressure 128/71 H 132/78 H 122/78 H Blood Pressure Mean 90 96 92 Pulse Ox 97 100 Oxygen Delivery Method Room Air Room Air Room Air 03/15/25 14:00 03/15/25 14:50 Temperature Temperature Source Pulse Rate 66 79 Respiratory Rate 16 16 Blood Pressure 114/81 H 138/94 H Blood Pressure Mean 92 108 Pulse Ox 99 99 Oxygen Delivery Method Room Air Room Air Weight Weight: 82.5 kg Body Mass Index (BMI) 28.5 Physical Exam Const alert and no apparent distress Constitutional Narrative: Appears unwell but alert and cooperative. HEENT normocephalic and head/scalp atraumatic Resp normal respiratory effort, no retractions, no use of accessory muscles and clear to auscultation bilaterally Cardio regular rate, regular rhythm, S1 normal heart sound and S2 normal heart sound GI normal to inspection, nondistended, normoactive bowel sounds, soft to palpation, non-tender and non-distended Extremity normal to inspection and full ROM Neuro Sensorium / Orientation: awake and alert Results Lab / Micro Data 03/15/25 13:10 03/15/25 13:10 Labs: Laboratory Results - last 24 hr 03/15/25 13:10: WBC 12.9 H, RBC 5.46, Hgb 15.7, Hct 47.8, MCV 87.5, MCH 28.8, MCHC 32.8, RDW Std Deviation 42.4, RDW Coeff of Ryan 13.2, Plt Count 201, MPV 9.3, Immature Gran % (Auto) 0.300, Neut % (Auto) 87.3 H, Lymph % (Auto) 5.7 L, [place] % (Auto) 6.1, Eos % (Auto) 0.2, Baso % (Auto) 0.4, Absolute Neuts (auto) 11.3 H, Absolute Lymphs (auto) 0.74 L, Nucleated RBC % 0, Sodium 141, Potassium 3.6, Chloride 104, Carbon Dioxide 22.7, Anion Gap 14, BUN 7, Creatinine 1.14, Estim Creat Clear Calc 75.24, Est GFR (MDRD) Non-Af 76, BUN/Creatinine Ratio 6.4 L, Glucose 174 H, Calcium 9.4, Total Bilirubin 0.75, AST 46 H, ALT 37, Alkaline Phosphatase 124, Total Protein 7.1, Albumin 4.1, Globulin 3.0, Albumin/Globulin Ratio 1.3, Urine Opiates Screen NEGATIVE, U Buprenorphine Qual NEGATIVE, Ur Oxycodone Screen PRESUMPTIVE POSITIVE, Urine Methadone Screen NEGATIVE, Urine Fentanyl Screen NEGATIVE, Ur Barbiturates Screen NEGATIVE, Ur Phencyclidine Scrn NEGATIVE, Ur Amphetamines Screen NEGATIVE, U Benzodiazepines Scrn PRESUMPTIVE POSITIVE, Urine Cocaine Screen PRESUMPTIVE POSITIVE, U Cannabinoids Screen NEGATIVE, Ethyl Alcohol 21.3 H Assessment & Plan Assessment/Plan (1) Polysubstance abuse: PLAN: Utilizing benzodiazepines as well as opiates. Patient uses bars of Xanax and Percocets that he gets off the street. Last use was last night, on the 6th. Plan is to utilize phenobarbital and buprenorphine taper. Addiction medicine to see to help facilitate outpatient program when he is ready for discharge. Additionally patient have other medications to help with somatic complaints related with his withdrawal. Patient presents here with his who is seeking treatment for the same PLAN: Plan Hypertension: Currently stable. Wait for his medications be reconciled. Hyperlipidemia: VTE prophylaxis: Low risk not indicated this time. CODE STATUS: Addressed with the patient. Wishes to be full code. Charges/Coding Visit Charges Inpatient E&M: 34116 Init Hosp L2
[2025-03-15 15:31] LABS: Mucous, Urine 0 SEEN /hpf (<or=2+); Red Blood Cells-Urine 0 SEEN /hpf (0-5); Squamous Epithelial Cells - UA 0 SEEN /hpf (0-5)
[2025-03-15 15:41] LABS: Color, Urine Yellow (Yellow); Glucose, Dipstick 100 mg/dl (Normal); Ketone-Dipstick Negative (Negative); Leukocyte Esterase-Dipstick Negative /ul (Negative); Nitrite-Dipstick Negative (Negative); Occult Blood-Urine Negative /ul (Negative); Protein-Dipstick Negative (Negative); Specific Gravity, Urine 1.015 (1.002-1.030); Urine Bilirubin Dipstick Negative (Negative)
--- NOTE | 2025-03-15 15:48 | CM.ED ---
Social Work Patient presented to ED with request to detox from Xanax, Percocet and cocaine. Treatment navigator notified of admission. Patient self pay, Medicaid specialist to ED to meet with patient. Meagan Arauz, LICENSING DIRECTOR, SERVICE DELIVERY DIRECTOR
[2025-03-16] VITALS: BP 100/58; PULSE 56; RESP 16; TEMP 37.2; O2SAT 96
[2025-03-16 04:00] VITALS: BP 135/74; PULSE 64; RESP 16; TEMP 36.9; O2SAT 94
[2025-03-16 07:57] VITALS: BP 132/76; PULSE 65; RESP 21; TEMP 37.2; O2SAT 94
--- NOTE | 2025-03-16 08:07 | PCM.PN.HOSP ---
Reason for Visit Chief Complaint: polysubstance withdrawal Subjective Subjective Little bit tired but no other new or acute complaints Objective Data Objective Data Vital Signs: Vital Signs Temp Pulse Resp BP Pulse Ox O2 Del Method 98.9 F 65 21 H 132/76 H 94 Room Air 03/16/25 07:57 03/16/25 07:57 03/16/25 07:57 03/16/25 07:57 03/16/25 07:57 03/16/25 07:57 Oxygen Delivery Method Room Air Weight: 79.9 kg Body Mass Index (BMI) 27.6 Intake & Output: Intake and Output for Last 24 Hours 03/14/25 03/15/25 03/16/25 23:59 23:59 23:59 Intake Total 100 / 200 100 / 100 Output Total 600 / 600 Balance 100 / 200 -500 / -500 Lab / Micro Data 03/15/25 13:10 03/15/25 13:10 Labs: Laboratory Results - last 24 hr 03/15/25 13:10: WBC 12.9 H, RBC 5.46, Hgb 15.7, Hct 47.8, MCV 87.5, MCH 28.8, MCHC 32.8, RDW Std Deviation 42.4, RDW Coeff of Ryan 13.2, Plt Count 201, MPV 9.3, Immature Gran % (Auto) 0.300, Neut % (Auto) 87.3 H, Lymph % (Auto) 5.7 L, Door % (Auto) 6.1, Eos % (Auto) 0.2, Baso % (Auto) 0.4, Absolute Neuts (auto) 11.3 H, Absolute Lymphs (auto) 0.74 L, Nucleated RBC % 0, Sodium 141, Potassium 3.6, Chloride 104, Carbon Dioxide 22.7, Anion Gap 14, BUN 7, Creatinine 1.14, Estim Creat Clear Calc 75.24, Est GFR (MDRD) Non-Af 76, BUN/Creatinine Ratio 6.4 L, Glucose 174 H, Calcium 9.4, Total Bilirubin 0.75, AST 46 H, ALT 37, Alkaline Phosphatase 124, Total Protein 7.1, Albumin 4.1, Globulin 3.0, Albumin/Globulin Ratio 1.3, Urine Color Yellow, Urine Clarity Clear, Urine pH 8.0, Ur Specific [place] 1.015, Urine Protein Negative, Urine Glucose (UA) 100 H, Urine Ketones Negative, Urine Occult Blood Negative, Urine Nitrite Negative, Urine Bilirubin Negative, Urine Urobilinogen 4 H, Ur Leukocyte Esterase Negative, Urine RBC 0 SEEN, Urine WBC 0 SEEN, Ur Squamous Epith Cells 0 SEEN, Urine Bacteria 0 SEEN, Urine Mucus 0 SEEN, Urine Opiates Screen NEGATIVE, U Buprenorphine Qual NEGATIVE, Ur Oxycodone Screen PRESUMPTIVE POSITIVE, Urine Methadone Screen NEGATIVE, Urine Fentanyl Screen NEGATIVE, Ur Barbiturates Screen NEGATIVE, Ur Phencyclidine Scrn NEGATIVE, Ur Amphetamines Screen NEGATIVE, U Benzodiazepines Scrn PRESUMPTIVE POSITIVE, Urine Cocaine Screen PRESUMPTIVE POSITIVE, U Cannabinoids Screen NEGATIVE, Ethyl Alcohol 21.3 H Physical Exam Narrative General: Alert, oriented, no apparent distress HEENT: Atraumatic, normocephalic Eyes: extraocular movements grossly intact Neck: Supple Respiratory: normal respiratory effort Cardiovascular: no edema appreciated GI: nondistended Extremities: Moving all extremities Neuro: No overt focal neurological deficits Psych: Cooperative Assessment & Plan Assessment/Plan (1) Polysubstance abuse: (2) Desire for detoxification: PLAN: Plan 54-year-old male with a history of hypertension and polysubstance use presented to [facility] ED 03/15/2025 for detox for polysubstance abuse. Uses cocaine, Percocet, and Xanax. Has been using Percocet and Xanax daily for a few weeks to months. Drinks alcohol occasionally. Reports he usually uses 3-4 Percocet at a time and takes a few bars of Xanax daily with last use several hours prior to presentation. UDS on presentation positive for oxycodone, benzodiazepines, cocaine, alcohol level 21.3. White count very slightly up at 12.9. In the ED patient's initial temperature was listed as one 1.3 however repeat 15 minutes later was 98 and there were no further episodes documented as fever so unclear if this was just documented incorrectly. UA with no acute abnormalities and no other acute infectious signs or symptoms notable. # Benzodiazepine use disorder - We will begin CIWA every 4 for 24 hours, then every 6 for 24 hours, then every 12 until discharge -Will begin phenobarbital taper -Gabapentin 300 mg every 8 as needed -Will start Bentyl and hydroxyzine as needed as well as loperamide as needed -Trazodone 100 mg p.o. nightly as needed sleep -Begin thiamine and folic acid supplementation -Zofran as needed for nausea -Case management consult to assist with discharge planning #Acute opiate withdrawal - Subutex taper initiated - As needed Tylenol, ibuprofen, bowel regimen, gabapentin, Bentyl, Vistaril, methocarbamol, clonidine - As needed trazodone nightly - As needed antiemetics -Once patient begins to clinically improve will discuss further discharge planning # Polysubstance use - Xanax, cocaine, Percocet - Encourage cessation - Management as above - Addiction medicine coordinator consulted # Documented fever - Patient initially listed as having a fever of 101.3 however repeat 15 minutes later was 98 and there were no further episodes of fever - UA not suggestive of UTI and no other localizing signs or symptoms that would suggest infectious etiology - Suspect this may have been documented incorrectly - Hold off empiric antibiotics unless patient were to develop any signs or symptoms of infection or have further fevers #Hypertension - Home med rec not updated however will hold off on home antihypertensives as patient is going to receive multiple agents that can lower blood pressure, can likely resume on discharge if applicable #DVT ppx: Low risk, not indicated at this time Yulisa Swanson MD Charges/Coding Visit Charges Inpatient E&M: 85871 Subs Hosp L2
--- NOTE | 2025-03-16 10:29 | ADDICTION ---
Met with pt to complete RAMP assessments. Pt was lethargic and having difficulties staying awake. Will complete discharge planning tomorrow morning.
[2025-03-16] MEDS: hydrOXYzine PAM 25 MG Capsule 50 MG PO (12:24)
[2025-03-16 14:00] VITALS: BP 136/78; PULSE 66; RESP 20; TEMP 36.2; O2SAT 99
--- NOTE | 2025-03-16 15:48 | CASEMGMT ---
Social Work- SW coordinated with [employer] rep who reports plans to meet with pt. 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 Pt is on first floor in detox as well. Pt reports that he was on [facility] prior, but makes too much money and was kicked off. Talya to meet to make determination. SW to follow for additional resources. At this time, pt reports having PCP and does not have additional needs. CAROLINE Quiroz
[2025-03-16 20:00] VITALS: BP 120/77; PULSE 67; RESP 16; TEMP 37.2; O2SAT 95
[2025-03-16 21:00] VITALS: PULSE 67
[2025-03-17] VITALS: BP 124/78; PULSE 68; RESP 16; TEMP 37.1; O2SAT 96
[2025-03-17 04:00] VITALS: BP 105/60; PULSE 63; RESP 16; TEMP 37.1; O2SAT 97
[2025-03-17 06:26] LABS: Hematocrit 46.9 % (40-54); Hemoglobin 15.7 g/dL (13.0-16.5); Mean Corp Hgb Conc 33.5 g/dL (32-36); Mean Corpuscular Volume 86.2 fL (80-94); Mean Platelet Vol. 10.0 fl (6.2-12.0); Platelet Count 232 K/mm3 (150-450); RBC Distribution Width CV 13.6 % (11.6-14.6); RBC Distribution Width SD 42.9 fl (35.1-43.9); Red Blood Count 5.44 M/mm3 (4.6-6.2); White Blood Count 8.4 K/mm3 (4.4-11.0)
[2025-03-17 06:48] LABS: Anion Gap 10 (5-15); BUN 12 mg/dL (4-19); BUN/Creat Ratio 10.1 RATIO (10-20); Calcium,Total 9.5 mg/dL (7.6-11.0); Carbon Dioxide 23.8 mmol/L (21.0-32.0); Chloride 108 mmol/L (98-108); Estimated Creatinine Clearance 72.27 ml/min (50-250); Glucose 99 mg/dL (70-99); Potassium 4.1 mmol/L (3.3-5.1)
[2025-03-17 08:00] VITALS: BP 143/93; PULSE 65; RESP 15; TEMP 36.5; O2SAT 97
--- NOTE | 2025-03-17 09:06 | PN.HOSP_ITS ---
Reason for Visit Chief Complaint: polysubstance withdrawal Subjective Subjective Still endorses feeling tired and a little bit weak overall but slightly better than yesterday Objective Data Objective Data Vital Signs: Vital Signs Temp Pulse Resp BP Pulse Ox O2 Del Method 97.7 F L 65 15 143/93 H 97 Room Air 03/17/25 08:00 03/17/25 08:00 03/17/25 08:00 03/17/25 08:00 03/17/25 08:00 03/17/25 08:00 Oxygen Delivery Method Room Air Weight: 79.9 kg Body Mass Index (BMI) 27.6 Intake & Output: Intake and Output for Last 24 Hours 03/15/25 03/16/25 03/17/25 23:59 23:59 23:59 Intake Total 100 / 200 200 / 200 240 / 240 Output Total 1200 / 1200 Balance 100 / -100 -1000 / -1000 240 / 240 Lab / Micro Data 03/17/25 05:33 03/17/25 05:33 Labs: Laboratory Results - last 24 hr 03/17/25 05:33: WBC 8.4, RBC 5.44, Hgb 15.7, Hct 46.9, MCV 86.2, MCH 28.9, MCHC 33.5, RDW Std Deviation 42.9, RDW Coeff of Ryan 13.6, Plt Count 232, MPV 10.0, Sodium 142, Potassium 4.1, Chloride 108, Carbon Dioxide 23.8, Anion Gap 10, BUN 12, Creatinine 1.17, Estim Creat Clear Calc 72.27, Est GFR (MDRD) Non-Af 74, BUN/Creatinine Ratio 10.1, Glucose 99, Calcium 9.5 Physical Exam Narrative General: Alert, no apparent distress HEENT: Atraumatic, normocephalic Eyes: extraocular movements grossly intact Neck: Supple Respiratory: normal respiratory effort Cardiovascular: no edema appreciated GI: nondistended Extremities: Moving all extremities Neuro: No overt focal neurological deficits Psych: Cooperative Assessment & Plan Assessment/Plan (1) Polysubstance abuse: (2) Desire for detoxification: PLAN: Plan 54-year-old male with a history of hypertension and polysubstance use presented to [facility] ED 03/15/2025 for detox for polysubstance abuse. Uses cocaine, Percocet, and Xanax. Has been using Percocet and Xanax daily for a few weeks to months. Drinks alcohol occasionally. Reports he usually uses 3- 4 Percocet at a time and takes a few bars of Xanax daily with last use several hours prior to presentation. UDS on presentation positive for oxycodone, benzodiazepines, cocaine, alcohol level 21.3. White count very slightly up at 12.9. In the ED patient's initial temperature was listed as one 1.3 however repeat 15 minutes later was 98 and there were no further episodes documented as fever so unclear if this was just documented incorrectly. UA with no acute abnormalities and no other acute infectious signs or symptoms notable. # Benzodiazepine use disorder - We will begin CIWA every 4 for 24 hours, then every 6 for 24 hours, then every 12 until discharge -Will begin phenobarbital taper -Gabapentin 300 mg every 8 as needed -Will start Bentyl and hydroxyzine as needed as well as loperamide as needed -Trazodone 100 mg p.o. nightly as needed sleep -Begin thiamine and folic acid supplementation -Zofran as needed for nausea -Case management consult to assist with discharge planning -03/17: Patient on phenobarb taper, appreciate addiction medicine input. Patient does report feeling generally weak overall which could be due to the medications and withdrawal but will have physical therapy evaluate as he is requiring multiple people to assist him and has walker in his room #Acute opiate withdrawal - Subutex taper initiated - As needed Tylenol, ibuprofen, bowel regimen, gabapentin, Bentyl, Vistaril, methocarbamol, clonidine - As needed trazodone nightly - As needed antiemetics -Once patient begins to clinically improve will discuss further discharge planning -03/17: Has not started Subutex taper, phenobarbital will cover a lot of patient's symptoms as well so likely will not end up starting this # Polysubstance use - Xanax, cocaine, Percocet - Encourage cessation - Management as above - Addiction medicine coordinator consulted -03/17: Continue to advise cessation # Documented fever - Patient initially listed as having a fever of 101.3 however repeat 15 minutes later was 98 and there were no further episodes of fever - UA not suggestive of UTI and no other localizing signs or symptoms that would suggest infectious etiology - Suspect this may have been documented incorrectly - Hold off empiric antibiotics unless patient were to develop any signs or symptoms of infection or have further fevers -03/17: Suspect that this was a documentation error as there have been no further episodes and nothing that points to infectious signs or symptoms and normal white count despite no antibiotics #Hypertension - Home med rec not updated however will hold off on home antihypertensives as patient is going to receive multiple agents that can lower blood pressure, can likely resume on discharge if applicable -03/17: Blood pressure 143/93, may need to restart a blood pressure medication on discharge if patient was not already taking 1 #DVT ppx: Low risk, not indicated at this time Yulisa Swanson MD Charges/Coding Visit Charges Inpatient E&M: 46424 Subs Hosp L2
--- NOTE | 2025-03-17 11:08 | ADDICTION ---
Met with patient to discuss discharge planning. Pt reports he is planning on following up with [facility] for outpatient treatment and MAT. Pt was given Walk-in information and phone numbers. He reports he does not need help with transportation. He would be like to be discharged on same day as .
[2025-03-17] MEDS: hydrOXYzine PAM 25 MG Capsule 50 MG PO (11:59)
[2025-03-17 14:15] VITALS: BP 151/97; PULSE 73; RESP 16; TEMP 36.6; O2SAT 100
[2025-03-17 20:47] VITALS: BP 147/88; PULSE 70; RESP 15; TEMP 36.9; O2SAT 99
[2025-03-18] MEDS: hydrOXYzine PAM 25 MG Capsule 50 MG PO (00:18)
[2025-03-18 04:22] VITALS: BP 138/84; PULSE 62; RESP 17; TEMP 36.8; O2SAT 99
[2025-03-18 08:00] VITALS: BP 153/91; PULSE 65; RESP 16; TEMP 37.3; O2SAT 100
--- NOTE | 2025-03-18 10:35 | PN.HOSP_ITS ---
Hospitalist Note PATIENT LEFT AMA
--- NOTE | 2025-03-18 10:35 | PCM.HOSP.N ---
Hospitalist Note PATIENT LEFT AMA
== END 2025-03-18 09:20 | disposition left against medical advice (07) | DRG 894 ==
LOC: ED 14:57 → MS3 15:36
PROVIDERS: Emergency Provider Emergency Medicine; PCP Internal Medicine; Visit Provider Internal Medicine
DX: F19.139 Other psychoactive substance abuse with withdrawal, unspecified (principal); E78.00 Pure hypercholesterolemia, unspecified; I10 Essential (primary) hypertension; F11.23 Opioid dependence with withdrawal; F14.90 Cocaine use, unspecified, uncomplicated; Z87.891 Personal history of nicotine dependence; Z79.899 Other long term (current) drug therapy; F13.99 Sedative, hypnotic or anxiolytic use, unspecified with unspecified sedative, hypnotic or anxiolytic-induced disorder
CPT/HCPCS: 36415; 80048; 80053; 80307; 81001; 82077; 85025; 85027; 97162; 97165; 99284